=== PATIENT | female | born 1995 | race Two or more races ===

== ENCOUNTER 2023-01-24 14:00 | Emergency (ER) | payer SELFPAY ==
[~2023-01-24] VITALS: Ht 167.6 cm; Wt 70.0 kg
[2023-01-24 14:11] VITALS: BP 146/93
[2023-01-24 14:32] LABS: Basophils # (auto) 0 10 ^3/uL (0-0.2); Basophils % (auto) 0.4 % (0.0-2.0); Eosinophils # (auto) 0.1 10 ^3/uL (0-0.8); Hematocrit 41.8 % (36.0-46.0); Monocytes # (auto) 0.7 10 ^3/uL (0-1.3); Neutrophils # (auto) 5.5 10 ^3/uL (1.6-8.6); White Blood Cell 9.3 10^3/uL (4.4-10.8)
[2023-01-24 14:33] LABS: Hemoglobin 13.5 g/dL (12.2-16.2); Lymphocytes % (auto) 31.8 % (10.0-50.0); Mean Corpuscular Hemoglobin 23.8 pg (28.0-32.0); Mean Corpuscular Hgb Conc. 32.3 g/dL (32.0-36.0); Mean Corpuscular Volume 73.8 fL (80.0-100.0); Monocytes % (auto) 7.1 % (0.0-12.0); Neutrophils % (auto) 59.7 % (37.0-80.0); Nucleated Red Blood Cells % 0.3 %; Red Blood Cells 5.67 10^6/uL (4.0-5.20); Red Cell Distribution Width 16.3 % (11.8-14.3)
[2023-01-24 14:40] LABS: Albumin 3.6 g/dL (3.4-5.0); BUN/Creatinine Ratio 26.2 (10.0-20.0); Calcium 9.9 mg/dL (8.5-10.1)
[2023-01-24 14:43] LABS: Bilirubin, Total 0.4 mg/dL (0.2-1.0); Total Protein 7.4 g/dL (6.4-8.2)
== END 2023-01-24 16:59 | disposition left against medical advice (07) ==
LOC: ER 14:00
DX: R07.89 Other chest pain (principal); Z53.21 Procedure and treatment not carried out due to patient leaving prior to being seen by health care provider
CPT/HCPCS: 36415; 71045; 80053; 84484; 85025; 93005